=== PATIENT | female | born 1990 | race Caucasian/White ===

== ENCOUNTER 2025-02-05 19:27 | Emergency (ER) | payer SELFPAY | END 2025-02-05 20:46 | disposition home or self-care (01) | LOC: BURERS 19:27 | DX: K04.7 Periapical abscess without sinus (principal); F17.210 Nicotine dependence, cigarettes, uncomplicated; F17.290 Nicotine dependence, other tobacco product, uncomplicated | CPT/HCPCS: 99282 ==